=== PATIENT | female | born 1995 | race Caucasian/White ===

== ENCOUNTER 2019-06-04 04:55 | Inpatient (IN) ==
[2019-06-04] MEDS ORDERED: TYLENOL PO PRN (05:09)
[2019-06-04] MEDS ORDERED: PEPCID PO ONE (05:09)
[2019-06-04] MEDS ORDERED: STADOL IV PRN (05:09)
[2019-06-04] MEDS ORDERED: PEPCID IV PRN (05:09)
[2019-06-04] MEDS ORDERED: ZOFRAN IV PRN (05:09)
[2019-06-04] MEDS ORDERED: PEPCID PO PRN (05:09)
[2019-06-04] MEDS ORDERED: REGLAN PO ONE (05:09)
[2019-06-04] MEDS ORDERED: PITOCIN 30 UNITS/NS 30 UNIT/500 ML IV.SOLN IV SCH (05:15)
[2019-06-04] MEDS ORDERED: SODIUM CHLORIDE 0.9% INJ SCH (05:15)
[2019-06-04] MEDS ORDERED: LR 1,000 ML IV SCH (05:15)
[2019-06-04 06:20] LABS: BASO# 0.02 X1000 (0.0-0.2); BASO% 0.2 % (0.0-0.8); EOS# 0.17 X1000 (0.0-0.7); EOS% 1.3 % (0.0-10.0); HEMATOCRIT 36.3 % (37.0-47.0); HEMOGLOBIN 11.8 g/dL (12.0-16.0); IMM GRAN# 0.04 X1000 (0.0-0.04); IMM GRAN% 0.3 % (0.0-0.5); LYMPH# 3.39 X1000 (1.2-3.4); LYMPH% 26.5 % (20.5-51.1); MCH 28.5 PG (27-31); MCHC 32.5 g/dL (33-37); MCV 87.7 FL (81-99); MONO# 1.07 X1000 (0.11-0.59); MONO% 8.4 % (1.7-9.3); MPV 13.2 FL (7.4-10.4); NEUT# 8.12 X1000 (1.4-6.5); NEUT% 63.3 % (42.2-75.2); PLT 150 X1000 (130-400); RBC 4.14 XMIL (4.2-5.4); RDW 12.8 % (11.5-14.5); WBC 12.81 X1000 (4.8-10.8)
[2019-06-04 06:44] LABS: UR AMPHETAMINES QUAL NONE DETECTED (NONE DETECT); UR BARBITUATES QUAL NONE DETECTED (NONE DETECT); UR BENZODIAZEPIN QUAL NONE DETECTED (NONE DETECT); UR CANNABINOIDS QUAL NONE DETECTED (NONE DETECT); UR COCAINE QUAL NONE DETECTED (NONE DETECT); UR METHADONE QUAL NONE DETECTED (NONE DETECT); UR METHAMPHETAMINE QUAL NONE DETECTED (NONE DETECT); UR OPIATES QUAL NONE DETECTED (NONE DETECT); UR OXYCODONE QUAL NONE DETECTED (NONE DETECT); UR PCP QUAL NONE DETECTED (NONE DETECT); UR PROPOXYPHENE QUAL NONE DETECTED (NONE DETECT); UR TCA QUAL NONE DETECTED (NONE DETECT)
[2019-06-04] MEDS ORDERED: FENTANYL IV ONE (09:45)
[2019-06-04] MEDS ORDERED: NAROPIN 0.2% INJ ONE (09:45)
[2019-06-04] MEDS ORDERED: FENTANYL-BUPIV-NS 2 MCG-0.1% 250 ML EPIDURAL SCH (10:00)
[2019-06-04] MEDS ORDERED: MINERAL OIL TOP PRN (13:24)
[2019-06-04] MEDS ORDERED: XYLOCAINE-MPF 1% INJ PRN ×2 (13:24→13:57)
[2019-06-04] MEDS ORDERED: ATARAX PO PRN (13:57)
[2019-06-04] MEDS ORDERED: AMBIEN PO PRN (13:57)
[2019-06-04] MEDS ORDERED: BENADRYL PO PRN (13:57)
[2019-06-04] MEDS ORDERED: PITOCIN IM PRN (13:57)
[2019-06-04] MEDS ORDERED: BENADRYL IV PRN (13:57)
[2019-06-04] MEDS ORDERED: PERI MEDS (DERMOPLAST/NUPERCAINAL/TUCKS) MISC PRN (13:57)
[2019-06-04] MEDS ORDERED: MINERAL OIL PO PRN (13:57)
[2019-06-04] MEDS ORDERED: CYTOTEC PO PRN (13:57)
[2019-06-04] MEDS ORDERED: M-M-R II VACCINE SUBQ ONE (13:57)
[2019-06-04] MEDS ORDERED: BOOSTRIX VACCINE IM ONE (13:57)
[2019-06-04] MEDS ORDERED: NORCO-5 PO PRN (13:57)
[2019-06-04] MEDS ORDERED: NORCO-10 PO PRN (13:57)
[2019-06-04] MEDS ORDERED: HYDROXYZINE IM PRN (13:57)
[2019-06-04] MEDS ORDERED: PITOCIN 20 UNITS/NS 20 UNITS/1,000 ML IV.SOLN IV SCH (14:00)
--- NOTE | 2019-06-04 15:46 | HISTORY AND PHYSICAL ---
HISTORY OF PRESENT ILLNESS: The patient is a 24-year-old white female, G2, P1, at 39 and 3/7ths weeks with a favorable cervix for induction of labor. care is significant for rubella nonimmune. She will receive a MMR after delivery. She also had a quad screen that was positive but then had the evaluation and a normal level 2 ultrasound. The patient's due date is 06/08/2019 by an 8 week ultrasound scan and to date her care has been unremarkable. PAST MEDICAL HISTORY: Unremarkable. PAST SURGICAL HISTORY: Cholecystectomy as well as dental surgery. PAST OBSTETRICAL HISTORY: G2, P1, spontaneous vaginal delivery, 6 pounds 14 ounces. GYNECOLOGICAL HISTORY: Menarche at age 11. REVIEW OF SYSTEMS: All systems are reviewed and noncontributory. FAMILY HISTORY: Significant for high blood pressure. SOCIAL HISTORY: Tobacco Use: She reports quitting. Alcohol Use: None. MEDICATIONS: vitamins. ALLERGIES: Penicillin and amoxicillin. PHYSICAL EXAMINATION: VITAL SIGNS: Height is 5 foot 3 inches. Weight is 165 pounds. Temperature is 97.4, blood pressure 119/71, pulse 92, and respirations 18. heart rate is in the 130s with positive accelerations. HEENT: Pupils are equal, round, and reactive to light and accommodation. Extraocular movements are intact. Oropharynx is clear. NECK: Supple. No thyromegaly. LUNGS: Clear to auscultation. HEART: Regular rate and rhythm. ABDOMEN: Gravid. Nontender. PELVIC: The cervix was dilated 3 cm, 80% effaced, -1 station, and vertex presentation. EXTREMITIES: No clubbing, cyanosis, or edema noted. NEUROLOGICAL: Cranial nerves 2 through 12 are grossly intact. Motor is 5/5. ASSESSMENT AND PLAN: A 24-year-old G2, P1, at 39 and 3/7th weeks with favorable cervix for induction of labor. The patient will be started on Pitocin and the patient may have an epidural. Anticipate vaginal delivery. cc: Thomas Pinto III, MD
--- NOTE | 2019-06-04 20:20 | OPERATIVE NOTE ---
PROCEDURE DATE: 06/04/2019 VAGINAL DELIVERY NOTE: The patient progressed to complete and pushing. Had spontaneous vaginal delivery of a female infant, 6 pounds 15 ounces with Apgars of 9 and 10 at 13:33 on 06/04/2019 over a 1st degree midline episiotomy. Cord blood sample was obtained at this time. Placenta was then delivered intact with 3 vessel cord. First degree midline episiotomy repaired with 3-0 chromic. ESTIMATED BLOOD LOSS: 150 mL. ANESTHESIA: Epidural. COUNTS: All counts were correct x2. cc: Thomas Pinto III, MD
[2019-06-04] MEDS: PERICOLACE PO SCH (21:31)
[2019-06-05] MEDS: MOTRIN PO PRN ×2 (04:23→21:00)
[2019-06-05 05:21] LABS: BASO# 0.02 X1000 (0.0-0.2); BASO% 0.1 % (0.0-0.8); EOS# 0.12 X1000 (0.0-0.7); EOS% 0.8 % (0.0-10.0); HEMATOCRIT 35.2 % (37.0-47.0); HEMOGLOBIN 11.2 g/dL (12.0-16.0); IMM GRAN# 0.04 X1000 (0.0-0.04); IMM GRAN% 0.3 % (0.0-0.5); LYMPH# 3.16 X1000 (1.2-3.4); LYMPH% 21.3 % (20.5-51.1); MCH 28.2 PG (27-31); MCHC 31.8 g/dL (33-37); MCV 88.7 FL (81-99); MONO# 1.17 X1000 (0.11-0.59); MONO% 7.9 % (1.7-9.3); MPV 13.3 FL (7.4-10.4); NEUT# 10.35 X1000 (1.4-6.5); NEUT% 69.6 % (42.2-75.2); PLT 148 X1000 (130-400); RBC 3.97 XMIL (4.2-5.4); RDW 12.9 % (11.5-14.5); WBC 14.86 X1000 (4.8-10.8)
--- NOTE | 2019-06-05 08:13 | OB/GYN PROGRESS NOTE ---
Progress Note OB - . OB Progress Note: Vital Signs - 24 hr 06/04/19 08:15 06/04/19 14:00 06/04/19 14:10 Temperature 97 F L 96.5 F L Pulse Rate 64 67 70 Respiratory Rate 20 18 18 Blood Pressure 108/73 107/58 Blood Pressure [Left Arm] 107/58 114/63 O2 Sat by Pulse Oximetry 97 99 100 06/04/19 14:20 06/04/19 14:30 06/04/19 14:40 Temperature Pulse Rate 66 63 54 L Respiratory Rate 18 18 18 Blood Pressure Blood Pressure [Left Arm] 108/63 92/60 112/64 O2 Sat by Pulse Oximetry 98 100 99 06/04/19 14:50 06/04/19 15:00 06/04/19 16:00 Temperature 96.9 F L Pulse Rate 64 52 L 79 Respiratory Rate 18 18 18 Blood Pressure 148/66 107/64 Blood Pressure [Left Arm] 115/67 148/66 O2 Sat by Pulse Oximetry 96 100 100 06/04/19 20:00 06/05/19 00:00 06/05/19 04:00 Temperature 97.6 F 97.8 F 97.6 F Pulse Rate 65 65 81 Respiratory Rate 18 18 18 Blood Pressure 102/56 111/65 101/62 Blood Pressure [Left Arm] O2 Sat by Pulse Oximetry 98 98 98 Laboratory Results - last 24 hr 06/05/19 04:51 WBC 14.86 H RBC 3.97 L Hgb 11.2 L Hct 35.2 L MCV 88.7 MCH 28.2 MCHC 31.8 L RDW Std Deviation 12.9 Plt Count 148 MPV 13.3 H Immature Gran % (Auto) 0.3 Neut % (Auto) 69.6 Lymph % (Auto) 21.3 [place] % (Auto) 7.9 Eos % (Auto) 0.8 Baso % (Auto) 0.1 Immature Gran # (Auto) 0.04 Neut # (Auto) 10.35 H Lymph # (Auto) 3.16 [place] # (Auto) 1.17 H Eos # (Auto) 0.12 Baso # (Auto) 0.02 24 yo PPD#1 s/p at 39 weeks, abn quad screen Patient seen and examined. No complaints this AM. Pain is controlled. She states lochia is like a period. She is tolerating a regular diet, denies nausea/vomiting. She is ambulating and voiding without difficulty. She plans for a BTL for pp contraception.She is bottle feeding. She had a girl. Physical Exam-General - PHYSICAL EXAM-ADULT Initial Vital Signs Reviewed: Yes - CONSTITUTIONAL General Appearance: appears well, alert, no apparent distress - EYES Eyes: PERRL/EOMI - HEAD, EARS, NOSE, MOUTH & THROAT HENMT: normocephalic/atraumatic - RESPIRATORY Respiratory: lungs clear, normal breath sounds - CARDIOVASCULAR Cardiovascular: regular rate, rhythm - GASTROINTESTINAL (ABDOMEN) Abdominal Exam: normal bowel sounds, non tender, soft, other (fundus firm, below umbilicus) - MUSCULOSKELETAL Extremity: normal range of motion, non-tender - PSYCHIATRIC Psych/Mental Status: normal mood/affect Assessment/Plan - Assessment/Plan Assessment: 24 yo PPD#1 s/p , abn quad 1. HD stable, afebrile 2. Routine PP care 3. Encourage ambulation 4. Interval BTL for PP contraception
[2019-06-05] MEDS: PITOCIN 30 UNITS/NS 30 UNIT/500 ML IV.SOLN IV SCH ×5 (20:32→20:36)
[2019-06-05] MEDS: PERICOLACE PO SCH (21:00)
[2019-06-06 08:11] VITALS: BP 113/72
== END 2019-06-06 12:00 | disposition home or self-care (01) | DRG 807 ==
LOC: P.LD 04:55 → P.MEDSURG 06-05 13:55
PROVIDERS: ADMIT Obstetrics & Gynecology; ATTEND Obstetrics & Gynecology